=== PATIENT | female | born 1985 | race Caucasian/White ===

== ENCOUNTER → 2019-11-19 16:59 | Outpatient (CLI) | payer OTHER, SELFPAY ==
[2019-11-19 18:02] LABS: Thyroid Stim Hormone (TSH) 1.83 uIU/mL (0.358-3.74)
[2019-11-26 14:44] LABS: HPV Reflexed? NOT INDICATED
== END ==
PROVIDERS: Visit Provider Obstetrics & Gynecology
DX: N92.6 Irregular menstruation, unspecified (principal); Z12.4 Encounter for screening for malignant neoplasm of cervix
CPT/HCPCS: 36415; 84443; 88175; G0145